=== PATIENT | male | born 1975 | race Caucasian/White ===

== ENCOUNTER 2017-04-01 23:06 | Emergency (ER) | payer OTHER ==
--- NOTE | 2017-04-02 07:40 | ER ---
ADMIT: 04/01/2017 RM/LOC: ER [facility] MR#: [id number] [address] [address] CLARITA SKINNER [address] [place] [address] Emergency Room Report SEX: M AGE: 41 : 1975 DATE: 04/01/2017 The patient is a 41-year-old male with chronic low back pain. States he turned, twisted, and his back gave out. Unable to bear weight due to the pain. Weakness in his legs. The patient is status post bilateral L4-L5 laminectomy. Exam remarkable for good rectal tone and brisk reflexes distally. Received Toradol, Dilaudid, Reglan, and Valium with marked improvement. Able to ambulate out. [facility] lumbar spine shows marked degenerative change, possible focal herniation at L3-L4. Jefferson Figueroa MD/ lynseyl JOB #: [id number] CC: Jefferson Figueroa MD, Attending Physician [facility] Physician, Family Physician . [facility]
--- NOTE | 2017-04-08 19:04 | ER ---
ADMIT: 04/01/2017 RM/LOC: ER [facility] MR#: [id number] [facility] [address] [place] [id number] CLARITA SKINNER [address] [place] [address] Emergency Room Report SEX: M AGE: 41 : 1975 DATE: 04/01/2017 DIAGNOSIS: Chronic low back pain, acute exacerbation. Jefferson Figueroa MD/ modl JOB #: [id number] CC: Jefferson Figueroa MD, Attending Physician [facility] Physician, Family Physician
== END 2017-04-02 02:10 | disposition home or self-care (01) ==
LOC: ER 23:06
DX: M54.5 Low back pain (principal); G89.29 Other chronic pain; F17.210 Nicotine dependence, cigarettes, uncomplicated; Z88.0 Allergy status to penicillin; Z79.899 Other long term (current) drug therapy